=== PATIENT | female | born 1955 | race Caucasian/White ===

== ENCOUNTER 2022-09-11 03:30 | Emergency (ER) | payer OTHER, SELFPAY ==
[2022-09-11 03:37] VITALS: BP 112/53; PULSE 97; RESP 20; TEMP 37.1; O2SAT 97; BMI 27.4
--- NOTE | 2022-09-11 03:48 | ED_ITS ---
HPI - General Adult General Time Seen by Provider: 03:48 Date Seen: 09/11/22 Chief complaint: Flank Pain Stated complaint: kidney stone Time Seen by Provider: 09/11/22 03:48 Source: patient, RN notes reviewed and old records reviewed Mode of arrival: ambulatory Limitations: no limitations History of Present Illness HPI narrative: 67-year-old female who comes in today with left flank pain for about 1 hour. Pain does not radiate. She has nausea but no vomiting. No urinary symptoms. Denies diarrhea. Has not taken anything for this. History of kidney stones Related Data Home Medications Medication Instructions Recorded Confirmed No Known Home Medications 09/11/22 09/11/22 Allergies Allergy/AdvReac Type Severity Reaction Status Date / Time codine AdvReac Uncoded 09/11/22 03:40 Review of Systems Status of ROS: Reports: 10 or more systems reviewed and unremarkable except as noted in History and below PFSH PFSH Social History Smoking Status: Never smoker Do you use any of these nicotine containing products: None How often do you have a drink containing alcohol: never AUDIT-C Alcohol total score: 0 Non-prescribed substance use: denies use Exam Narrative: Exam Narrative: General: Well-developed and well-nourished, no acute distress Head: Atraumatic and normocephalic Eyes: Pupils are equal reactive, extraocular motions intact, conjunctiva clear ENT: External nose and ears are normal, posterior pharynx without erythema or exudate Neck: No midline cervical tenderness, full spontaneous range of motion the neck, trachea midline, no adenopathy Heart: Regular rate and rhythm no murmurs or thrills Lungs: Clear to auscultation bilaterally without wheezes or crackles Abdomen: Soft, nontender, nondistended with active bowel sounds Musculoskeletal: No tenderness, deformity, or edema Neurologic: Awake, alert, and oriented x3, no gross focal neurologic deficits, cranial nerves intact as tested Psych: Mood and affect are appropriate Skin: No rashes Const: Vital Signs, click to edit/add: Vital Signs - 24 hr 09/11/22 03:37 09/11/22 05:22 Temperature 98.8 F Pulse Rate [Right Pulse Oximeter] 97 80 Respiratory Rate 20 18 Blood Pressure [Ri ght Upper Arm] 112/53 L 110/62 Pulse Oximetry 97 97 Oxygen Delivery Me thod Room Air Room Air Course Course Hospital Course: Patient seen examined, prior records reviewed. Patient presents with about an hour of left-sided flank pain. History of kidney stones and this certainly sounds suspicious for recurrence. Consider also aortic dissection, musculoskeletal pain. Labs and CT scan ordered along with Toradol and Zofran. Reevaluation(s) Reevaluation #1: CBC and basic panel independently interpreted by me reassuring with no leukocytosis, no evidence for renal insufficiency. CT scan demonstrates left hydronephrosis with a 7 mm x 10 mm proximal ureteral stone. Patient is not yet given a urine sample. This likely will need intervention due to size and patient will be referred to [facility]. Time: 04:56 Reevaluation #2: Patient is not yet provided urine sample. Sign out to oncoming provider pending UA, otherwise stable for discharge. Time: 07:25 Vital Signs Vital signs: Initial Vital Signs Temperature 98.8 F 09/11/22 03:37 Temperature Source Temporal Artery Scan 09/11/22 03:37 Pulse Rate 97 09/11/22 03:37 Pulse Rhythm Regular 09/11/22 03:37 Pulse Strength 3+ Normal 09/11/22 03:37 Respiratory Rate 20 09/11/22 03:37 Blood Pressure 112/53 L 09/11/22 03:37 Blood Pressure Mean 72 09/11/22 03:37 Pulse Oximetry 97 09/11/22 03:37 Oxygen Delivery Method Room Air 09/11/22 03:37 Vital Signs Temperature 98.8 F 09/11/22 03:37 Pulse Rate 97 09/11/22 03:37 Respiratory Rate 20 09/11/22 03:37 Blood Pressure 112/53 L 09/11/22 03:37 Pulse Oximetry 97 09/11/22 03:37 Oxygen Delivery Method Room Air 09/11/22 03:37 Temperature 98.8 F 09/11/22 03:37 Pulse Rate 80 09/11/22 05:22 Respiratory Rate 18 09/11/22 05:22 Blood Pressure 110/62 09/11/22 05:22 Pulse Oximetry 97 09/11/22 05:22 Oxygen Delivery Method Room Air 09/11/22 05:22 Medical Decision Making Medical Records Medical records reviewed: Yes I reviewed the patient's medical records Lab Data Lab results reviewed: Yes I reviewed the patient's lab results Labs: Lab Results 09/11/22 Range/Units 03:40 WBC 9.41 (4.50-11.00) K/uL RBC 4.30 (4.00-5.20) m/uL Hgb 12.9 (12.0-16.0) gm/dL Hct 40.3 (33.0-51.0) % MCV 94 (80-100) fL MCH 30 (26-34) pg MCHC 32 (32-36) gm/dL RDW Coeff of Kelsie 13.4 (11.5-15.5) % Plt Count 532 H (140-440) K/uL Neut % (Auto) 70.4 (42.0-72.0) % Lymph % (Auto) 24.4 (20-44) % [place] % (Auto) 2.6 (0.0-11.0) % Eos % (Auto) 1.8 (0.0-7.0) % Baso % (Auto) 0.3 (0.0-3.0) % Neut # (Auto) 6.62 (1.7-7.0) K/uL Lymph # (Auto) 2.30 (0.90-2.90) K/uL [place] # (Auto) 0.20 (0.00-0.90) K/UL Eos # (Auto) 0.17 (0.00-0.50) K/uL Baso # (Auto) 0.03 (0.00-0.30) K/uL Sodium 139 (135-149) mmol/L Potassium 4.1 (3.6-5.1) mmol/L Chloride 104 (96-114) mmol/L Carbon Dioxide 26 (20-32) mmol/L BUN 16 (7-30) mg/dL Creatinine 0.7 (0.5-1.5) mg/dL Estimated Creat Clear 41.76 Estimated GFR 95 ml/min Glucose 125 H (60-115) mg/dL Calcium 9.5 (8.4-10.6) mg/dL Discharge Plan Discharge Clinical Impression: Calculus of proximal left ureter Patient Disposition: Home, Self-Care Condition: Improved Instructions: Ureteral Stones (ED) Additional Instructions: Take Tylenol 1gram every six hours alternating with ibuprofen 400mg every six hours scheduled alternating every 3 hours for baseline pain control Take Dramamine chewable tablets 50 mg every 6 hours Take oxycodone as needed for severe pain Take Zofran as needed for nausea vomiting Drink to thirst Call [facility] to schedule a follow-up appointment, [facility] [phone] Shiv [phone] Activity Level: No Restrictions Discharge Diet: Regular Prescriptions: No Action No Known Home Medications Stand Alone Forms: [employer] Info Instructions
--- NOTE | 2022-09-11 03:50 | CRLHL7_ITS ---
For Patients: As a result of the Century Cures Act, medical imaging exams and procedure reports are released immediately into your electronic medical record. You may view this report before your referring provider. If you have questions, please contact your health care provider. INDICATION: Left flank pain. TECHNIQUE: CT abdomen and pelvis without contrast. COMPARISON: None. FINDINGS: Lower chest: Unremarkable. Liver: Normal in size and attenuation. No suspicious masses. Gallbladder and bile ducts: No stones or inflammation. No biliary dilatation. Pancreas: Unremarkable. No mass or inflammation. Spleen: Normal in size. No masses. Adrenal glands: Normal in size. No nodules. Kidneys: Prominent 9 x 5 mm stone at the left ureteropelvic junction is causing moderate hydronephrosis. Numerous tiny stones remain in each kidney. GI tract: Unremarkable. Normal in caliber. No sign of mass or inflammation. Normal appendix. Vasculature: Abdominal aorta is normal in caliber. Lymph nodes: No lymphadenopathy. Peritoneum/Abdominal Wall: Unremarkable. No sign of mass or infiltration. No free air or significant free fluid. Pelvis: Unremarkable. No pelvic masses. Bones: Unremarkable for age. IMPRESSION: Prominent 9 x 5 mm stone at the left UPJ causing moderate hydronephrosis. Please note that all CT scans at this facility use dose modulation, iterative reconstruction, and/or weight-based dosing when appropriate to reduce radiation dose to as low as reasonably achievable. Dictated by Tone Jeffers MD @ 09/11/2022 5:12:21 AM (Electronically Signed)
[2022-09-11 03:59] LABS: Basophils Absolute Auto 0.03 K/uL (0.00-0.30); Basophils Percent Auto 0.3 % (0.0-3.0); Eosinophils Absolute Auto 0.17 K/uL (0.00-0.50); Eosinophils Percent Auto 1.8 % (0.0-7.0); Hematocrit 40.3 % (33.0-51.0); Hemoglobin* 12.9 gm/dL (12.0-16.0); Immature Granulocytes Abs Auto 0.05 K/uL (0.00-0.30); Immature Granulocytes Pct Auto 0.5 %; Lymphocytes Percent Auto 24.4 % (20-44); Mean Corpuscular HGB Conc 32 gm/dL (32-36); Mean Corpuscular Hemoglobin 30 pg (26-34); Mean Corpuscular Volume 94 fL (80-100); Monocytes Percent Auto 2.6 % (0.0-11.0); Neutrophils Absolute Auto 6.62 K/uL (1.7-7.0); Neutrophils Percent Auto 70.4 % (42.0-72.0); Platelet Count* 532 K/uL (140-440); RDW Coefficient of Variation % 13.4 % (11.5-15.5); Slide Review Reflex No; White Blood Count* 9.41 K/uL (4.50-11.00)
[2022-09-11] MEDS: ONDANSETRON 2 MG/ML inj 4 MG IVP ×3 (04:03→12:46)
[2022-09-11] MEDS: KETOROLAC 15 MG/ML inj IVP (04:04)
[2022-09-11 04:11] LABS: Chloride* 104 mmol/L (96-114); Potassium* 4.1 mmol/L (3.6-5.1); Sodium* 139 mmol/L (135-149)
[2022-09-11 04:13] LABS: Creatinine* 0.7 mg/dL (0.5-1.5); Est. Creatinine Clearance* 41.76; Estimated Glomerular Filt Rate 95 ml/min
[2022-09-11 04:14] LABS: Blood Urea Nitrogen* 16 mg/dL (7-30); Calcium* 9.5 mg/dL (8.4-10.6); Carbon Dioxide* 26 mmol/L (20-32); Glucose* 125 mg/dL (60-115)
[2022-09-11 05:22] VITALS: BP 110/62; PULSE 80; RESP 18; O2SAT 97
[2022-09-11 07:41] VITALS: BP 115/70; PULSE 116; RESP 18; O2SAT 96
[2022-09-11 07:47] LABS: Appearance Urine Cloudy (Clear); Bilirubin Urine Negative (Negative); Blood Urine 2+ (Negative); Color Urine Yellow (Yellow); Glucose Urine Negative (Negative); Ketones Urine Negative (Negative); Leukocyte Esterase Urine Trace (Negative); Nitrite Urine Positive (Negative); Protein Urine Negative (Negative); Urobilinogen Urine 0.2 (0.2-1.0)
[2022-09-11 07:57] LABS: Bacteria Urine Many; RBC Urine 0-2 (0-2); Squamous Epithelial Cell Urine Moderate (None-Few)
[2022-09-11] MEDS: 0.9 % SODIUM CHLORIDE 1000 ml 1,000 ML 2000 ML IV (08:03)
[2022-09-11] MEDS: HYDROmorphone 0.5 mg/0.5 ml inj IVP ×2 (08:10→12:32)
[2022-09-11] MEDS: cefTRIAXone 1 GM in 0.9 % SODIUM CHLORIDE Mini-bag 100 ML IVPB (08:10)
--- NOTE | 2022-09-11 08:18 | ED.NURSE ---
pt more uncomfortable. dilaudid iv given. plan transfer, rocephin started.
[2022-09-11 08:39] VITALS: O2SAT 87
--- NOTE | 2022-09-11 08:40 | ED.NURSE ---
pt sats decreased to 87-88%, pt placed on 2 L O2/nc.
[2022-09-11 10:18] VITALS: BP 104/59; PULSE 99; RESP 18; TEMP 36.5; O2SAT 99
--- NOTE | 2022-09-11 10:23 | PC.NURSE ---
1020-Patient is doing well. Offers no complaints. VSS. denies pain.
[2022-09-11 11:24] VITALS: BP 116/64; PULSE 99; RESP 16; TEMP 36.2; O2SAT 99
--- NOTE | 2022-09-11 11:24 | ED.NURSE ---
Checked on patient. Stated pain was tolerable at this time and didn't need any more pain medications. Updated patient that we are just waiting on a bed.
[2022-09-11] MEDS: LACTATED RINGERS 1000 ML 1,000 ML 125 ML IV (12:12)
--- NOTE | 2022-09-11 12:38 | ED.NURSE ---
Report given to Edgardo at [facility], pt will transfer to unit [id number]. [facility] paged.
--- NOTE | 2022-09-11 13:02 | PC.NURSE ---
Patient was transported via EMS to [facility]. All belongings sent with patient. Pain and nausea meds given to patient prior to leaving.
== END 2022-09-11 13:03 | disposition home or self-care (01) ==
PROVIDERS: Family Medicine; Emergency Provider Family Medicine
DX: N20.1 Calculus of ureter (principal)
CPT/HCPCS: 36415; 74176; 80048; 81001; 85025; 87086; 87186; 94761; 96365; 96375; 99284; 99285; A0425; A0428; J0696; J1170; J1885; J2405; J7030; J7120